=== PATIENT | female | born 1985 | race Caucasian/White ===

== ENCOUNTER 2021-11-08 07:36 | Outpatient (CLI) | payer OTHER ==
[2021-11-08 20:40] LABS: SARS-CoV-2 PCR by NAA Not Detected (NotDetected)
== END 2021-11-08 07:37 | disposition home or self-care (01) ==
LOC: CSHLAB 07:36
PROVIDERS: ATTEND Obstetrics & Gynecology
DX: Z20.822 Contact with and (suspected) exposure to COVID-19 (principal)
CPT/HCPCS: U0003; U0005

== ENCOUNTER 2021-11-12 23:55 | Inpatient (IN) | payer OTHER ==
[2021-11-13 00:26] VITALS: BMI 34.9
[2021-11-13 00:50] LABS: Fetal Membranes Rupture RUPTURE DETECTED (No Rupture)
[2021-11-13] MEDS ORDERED: Methylergonovine 0.2 MG/ML VIAL IM PRN ×2 (01:04→07:41)
[2021-11-13] MEDS ORDERED: Lidocaine 1% (PF) 30 ML VIAL SC PRN (01:04)
[2021-11-13] MEDS ORDERED: Acetaminophen 500 MG TAB PO PRN (01:04)
[2021-11-13] MEDS ORDERED: hydrALAZINE 20 MG/ML VIAL SLOW IVP PRN ×2 (01:04→07:41)
[2021-11-13] MEDS ORDERED: Docusate 100 MG CAP PO PRN (01:04)
[2021-11-13] MEDS ORDERED: Ibuprofen 800 MG TAB PO PRN (01:04)
[2021-11-13] MEDS ORDERED: Ondansetron PF 4 MG/2 ML Vial IVP PRN ×3 (01:04→07:41)
[2021-11-13] MEDS ORDERED: Promethazine HCl 25 MG/ML VIAL IM PRN ×2 (01:04→02:48)
[2021-11-13] MEDS ORDERED: Misoprostol 200 MCG TAB PR PRN (01:04)
[2021-11-13] MEDS ORDERED: Butorphanol Tartrate 1 MG/ML VIAL SLOW IVP PRN (01:04)
[2021-11-13] MEDS ORDERED: NS w/ Oxytocin 30 units 500 ML IV SCH ×3 (01:15→07:41)
[2021-11-13] MEDS ORDERED: Lactated Ringer's 1,000 ML IV SCH (01:15)
[2021-11-13 01:48] LABS: Hemoglobin 11.2 g/dL (12.0-15.5); Mean Corpuscular Hemoglobin 30.3 pg (27.0-33.0); Mean Corpuscular Volume 91.6 fl (81.6-98.3); Mean Platelet Volume 9.6 fl (7.4-10.4); Platelet Count 307 10x3/uL (150-450); RBC Distribution Width 13.4 % (11.5-14.5)
[2021-11-13] MEDS ORDERED: Fentanyl 2 mcg/Bup 0.1% Cadd 100 ML ONE (01:56)
[2021-11-13 02:18] LABS: Hep B Surf Ag Non-Reactive S/CO (NonReactive)
[2021-11-13 02:19] LABS: Syphilis Antibody Nonreactive (Nonreactive); Syphilis Antibody Index 0.02 S/CO (<1.00 Non-Reactive)
[2021-11-13 02:22] LABS: HBSAg Index 0.61 S/CO (0-0.99)
[2021-11-13] MEDS ORDERED: Lactated Ringer's 500 ML IV PRN (02:48)
[2021-11-13] MEDS ORDERED: ePHEDrine Sulfate 50 MG/10 ML VIAL SLOW IVP PRN (02:48)
[2021-11-13] MEDS ORDERED: Acetaminophen 325 MG TAB PO PRN (02:48)
[2021-11-13] MEDS ORDERED: Naloxone HCl 0.4 mg/ml Vial IVP PRN ×2 (02:48)
[2021-11-13] MEDS ORDERED: diphenhydrAMINE 50 MG/ML VIAL IVP PRN (02:48)
[2021-11-13] MEDS ORDERED: Hydrocerin (Eucerin) Cream 120 gm Jar TOP PRN (02:48)
[2021-11-13] MEDS ORDERED: Fentanyl 2 mcg/Bupivacaine 0.1% Cassette 100 ML EPIDURAL SCH (03:00)
[2021-11-13] MEDS ORDERED: Communication Order-Pharmacy FS SCH (03:00)
[2021-11-13] MEDS ORDERED: Lidocaine 1% (PF) 30 ML VIAL ONE (03:50)
[2021-11-13] MEDS: NS w/ Oxytocin 30 units 500 ML ONE ×2 (04:10→05:51)
[2021-11-13] MEDS ORDERED: Benzocaine-Menthol 82.5 ML CAN TOP PRN (07:41)
[2021-11-13] MEDS ORDERED: diphenhydrAMINE 25 MG CAP PO PRN (07:41)
[2021-11-13] MEDS ORDERED: Boostrix 0.5 ML (Tdap) VIAL IM ONE (07:41)
[2021-11-13] MEDS ORDERED: Misoprostol 200 MCG TAB VAG PRN (07:41)
[2021-11-13] MEDS ORDERED: Lanolin Ointment 7 GM TUBE TOP PRN (07:41)
[2021-11-13] MEDS ORDERED: Bisacodyl 10 MG SUPP PR PRN (07:41)
[2021-11-13] MEDS ORDERED: Milk Of Magnesia 30 ML UDCUP PO PRN (07:41)
[2021-11-13] MEDS ORDERED: Preparation H Ointment 28 GM TUBE PR PRN (07:41)
[2021-11-13] MEDS ORDERED: Bupivacaine 0.25% HCL 30 ML VIAL ONE (08:00)
[2021-11-13] MEDS: Docusate 100 MG CAP PO SCH ×2 (09:02→20:31)
[2021-11-13] MEDS: Prenatal Vitamin 1 TAB PO SCH (09:02)
[2021-11-13] MEDS: Ferrous Sulfate 325 MG TAB PO SCH ×2 (09:02→17:24)
[2021-11-13] MEDS: HYDROcodone/Acetaminophen 5/325 mg Tablet PO PRN ×2 (09:05→20:31)
[2021-11-13] MEDS: Ibuprofen 800 MG TAB PO SCH ×3 (09:09→23:41)
[2021-11-14] MEDS: Ferrous Sulfate 325 MG TAB PO SCH (07:07)
[2021-11-14] MEDS: Prenatal Vitamin 1 TAB PO SCH (08:16)
[2021-11-14] MEDS: Docusate 100 MG CAP PO SCH (08:16)
[2021-11-14] MEDS: Ibuprofen 800 MG TAB PO SCH (08:16)
[2021-11-14 08:30] VITALS: BP 122/64; TEMP 98
== END 2021-11-14 12:30 | disposition home or self-care (01) | DRG 807 ==
LOC: CSHLD/OP 23:55 → CSHLD 11-13 01:12 → CSHPP 11-13 06:40
PROVIDERS: ADMIT Obstetrics & Gynecology; ATTEND Obstetrics & Gynecology
PROC: 10E0XZZ Delivery of Products of Conception, External Approach (ICD-10-PCS; principal; 2021-11-13)
PROC: 0KQM0ZZ Repair Perineum Muscle, Open Approach (ICD-10-PCS; 2021-11-13)
DX: O99.344 Other mental disorders complicating childbirth (principal); Z37.0 Single live birth; F32.A Depression, unspecified; F41.9 Anxiety disorder, unspecified; Z20.822 Contact with and (suspected) exposure to COVID-19; O70.1 Second degree perineal laceration during delivery; Z3A.40 40 weeks gestation of pregnancy
CPT/HCPCS: 36415; 51702; 84112; 85027; 86780; 86850; 86900; 86901; 87340; 99285; J2590; S0020